=== PATIENT | male | born 1990 | race Two or more races ===

== ENCOUNTER 2025-03-20 18:23 | Emergency (ER) | payer OTHER ==
[~2025-03-20] VITALS: Ht 154.9 cm; Wt 88.5 kg
[2025-03-20] MEDS ORDERED: CATAPRES0.3 MG PO (19:10)
[2025-03-20] MEDS ORDERED: TESTIM5 GM TD (19:11)
[2025-03-20] MEDS ORDERED: TETRACAINE HCL 20 DR/ML DROPS OP STA (19:35)
[2025-03-20] MEDS ORDERED: GENTAMICIN SULFATE 0.15 MG/DR DROPS 5ML OP STA (19:35)
[2025-03-20] MEDS ORDERED: CEFTRIAXONE SODIUM 1,000 MG VIAL IM STA (19:35)
[2025-03-20] MEDS ORDERED: CEFTRIAXONE SODIUM 1,000 MG VIAL ONE (20:25)
[2025-03-20] MEDS ORDERED: GENTAMICIN SULFATE 0.15 MG/DR DROPS 5ML OP ONE (20:25)
== END 2025-03-20 21:13 | disposition home or self-care (01) ==
LOC: ER 18:23
DX: H01.006 Unspecified blepharitis left eye, unspecified eyelid (principal)